=== PATIENT | female | born 1945 | race Caucasian/White ===

== ENCOUNTER → 2017-02-03 15:51 | Outpatient (CLI) | payer MEDICARE, OTHER | END | disposition home or self-care (01) | LOC: D.MAMMO 08:00 | DX: Z12.31 Encounter for screening mammogram for malignant neoplasm of breast (principal) ==

== ENCOUNTER 2017-10-24 09:51 | Outpatient (CLI) | payer MEDICARE, OTHER ==
[~2017-10-24] VITALS: Ht 165.1 cm; Wt 65.9 kg
[2017-10-24 10:29] VITALS: Ht 165.1 cm; Wt 65.9 kg
== END 2017-10-24 10:41 | disposition home or self-care (01) ==
LOC: D.OPS 09:51
DX: M81.0 Age-related osteoporosis without current pathological fracture (principal)

== ENCOUNTER 2018-05-29 13:12 | Outpatient (CLI) | payer MEDICARE, OTHER ==
[~2018-05-29] VITALS: Ht 165.1 cm; Wt 68.0 kg
[2018-05-29 13:46] VITALS: BP 147/73; Ht 165.1 cm; Wt 68.0 kg
== END 2018-05-29 14:14 | disposition home or self-care (01) ==
LOC: D.OPS 13:12
DX: M81.0 Age-related osteoporosis without current pathological fracture (principal); Z01.812 Encounter for preprocedural laboratory examination

== ENCOUNTER 2018-09-16 10:51 | Inpatient (IN) | payer MEDICARE, OTHER ==
[~2018-09-16] VITALS: Ht 165.1 cm; Wt 68.0 kg
[2018-09-16 12:40] LABS: BASOPHILS 0.1 % (0-2); EOSINOPHILS 0.3 % (0-7); HEMOGLOBIN 14.1 g/dL (12-16); IMMATURE GRANULOCYTES 0.4 % (0-5); LYMPHOCYTES 5.8 % (15-50); MCH 31.3 pg (26.0-34.0); MCHC 33.6 g/dL (31.0-37.0); MCV 93.3 fL (80.0-100.0); MEAN PLATELET VOLUME 10.1 fL (7.4-10.4); MONOCYTES 6.4 % (2-11); PLATELET COUNT 223 10x3/uL (130-400); RDW 14.1 % (11.5-14.5); WBC 13.7 10x3/uL (4.8-10.8)
[2018-09-16 12:44] LABS: INR 0.98 (0.85-1.17); PROTIME 12.5 SECONDS (11.6-15.0)
[2018-09-16 13:08] LABS: ALBUMIN 3.8 g/dL (3.4-5.0); ANION GAP 12.8 mmol/L (8-16); BILIRUBIN - TOTAL 0.61 mg/dL (0.2-1.3); CALCIUM 9.3 mg/dL (8.5-10.1); CARBON DIOXIDE 29.6 mmol/L (21.0-32.0); CREATININE - SERUM 0.9 mg/dL (0.6-1.3); MAGNESIUM - SERUM 1.8 mg/dL (1.8-2.4); POTASSIUM - SERUM 3.4 mmol/L (3.5-5.1); PROTEIN - SERUM 7.1 g/dL (6.4-8.2)
[2018-09-16 14:27] VITALS: BP 171/69; Ht 165.1 cm; Wt 68.0 kg
--- NOTE | 2018-09-16 16:20 | NUR ---
PT LEFT FOR SURGERY AND STABLE AT TIME OF DEPARTURE WITH SURGERY STAFF.
--- NOTE | 2018-09-16 20:30 | NUR ---
RECIEVED TO ROOM, ACCOMPANIED BY STAFF AND FAMILY MEMBER. ABLE TO MOVE ALL EXTREMETIES, BUT DENIES ABILITY TO FEEL SENSATION. A&O X 4, WILL CONTINUE TO MONITOR.
--- NOTE | 2018-09-17 03:25 | NUR ---
REPORTS NEED FOR A BM, PUT ON BEDPAN, SOME LIQUID STOOL ALREADY NOTED ON SHEETS. PT REPORTS SHE THINK SHE IS DONE, NO MORE STOOL NOTED IN BEDPAN. LISA CARE PROVIDED, LINENS CHANGED. DENIES FURTHER NEEDS.
--- NOTE | 2018-09-17 03:45 | NUR ---
I have reviewed this patient and I concur with the Shift Assessment completed by the Licensed Practical Nurse today this shift.
[2018-09-17 04:00] VITALS: BP 108/60
[2018-09-17 08:00] VITALS: BP 137/77
[2018-09-17 08:03] LABS: BASOPHILS 0.1 % (0-2); EOSINOPHILS 0 % (0-7); HEMATOCRIT 32.8 % (36.0-48.0); HEMOGLOBIN 10.8 g/dL (12-16); IMMATURE GRANULOCYTES 0.3 % (0-5); LYMPHOCYTES 4.5 % (15-50); MCH 30.3 pg (26.0-34.0); MCHC 32.9 g/dL (31.0-37.0); MCV 91.9 fL (80.0-100.0); MEAN PLATELET VOLUME 10.5 fL (7.4-10.4); MONOCYTES 8.9 % (2-11); NEUTROPHILS 86.2 % (40-80); PLATELET COUNT 216 10x3/uL (130-400); RBC 3.57 10x6/uL (4.00-5.40); WBC 13.8 10x3/uL (4.8-10.8)
[2018-09-17 08:22] LABS: ALBUMIN 2.7 g/dL (3.4-5.0); ANION GAP 12.3 mmol/L (8-16); BILIRUBIN - TOTAL 0.76 mg/dL (0.2-1.3); CALCIUM 7.7 mg/dL (8.5-10.1); CARBON DIOXIDE 27.8 mmol/L (21.0-32.0); CREATININE - SERUM 0.9 mg/dL (0.6-1.3); MAGNESIUM - SERUM 1.7 mg/dL (1.8-2.4); POTASSIUM - SERUM 5.1 mmol/L (3.5-5.1); PROTEIN - SERUM 5.4 g/dL (6.4-8.2)
--- NOTE | 2018-09-17 08:56 | OP ---
PATIENT NAME: DAVE QUEZADA MEDICAL RECORD: [id number] :47 LOCATION:D.MS [id number] ADMISSION DATE:09/16/18 SURGEON: ARIES JARRELL DO DATE OF OPERATION: 09/16/2018 PROCEDURE PERFORMED: Right hip intramedullary nail. PREOPERATIVE DIAGNOSIS: Closed and displaced right intertrochanteric hip fracture. POSTOPERATIVE DIAGNOSIS: Closed and displaced right intertrochanteric hip fracture. INDICATIONS: Ms. Quezada is a 73-year-old female who fell in her garage down to her right hip. She was unable to bear weight and was taken to the ER. X-rays were done and showed a right comminuted intertrochanteric hip fracture. She last ate at about 8:30 or 9:00 this morning. I saw her in the ER today and informed we can fix her hip today as she was not on any other medicines. She did get an EKG, and due to EKG, we decided to do spinal. I informed her and her of risks and benefits of the right hip IM nail including infection, bleeding, damage to nerves and vessels, need for further surgery, fracture. They were okay with those risks and she signed the consent. SURGEON: Aries Jarrell DO DESCRIPTION OF PROCEDURE: The patient was taken to the operative suite and a spinal was placed by anesthesia. Once the spinal was set up, the patient was placed over on Solomon table and positioned. A time-out was performed and everyone was in agreement as to correct side, site, patient, and procedure. She received a gram of Ancef prior to starting surgery. The reduction maneuver was then made with the hip on the Solomon table. This was confirmed on x-ray. After adequate reduction of the IT fracture on x-ray, then the hip was prepped and draped. Once the hip was prepped and draped, the incision began just proximal to the greater trochanter. Once the starting point was obtained with guidewire, the awl was used to enter the canal. Once the canal was entered, the ball tip guide pin was placed down the femoral canal, confirmed in AP and lateral down to then knee. It was measured and measured to be a 360 nail. Reaming then began with #[address] up to #13. I decided to put a #11 nail down. The #11 nail was then placed and the guide pin for lag screw was placed and confirmed to be in good position on AP and lateral, measured to be 100. It was then drilled and lag screw was placed. Then, traction was let off. There was compression on the lag screw. I was not able to lock and I had to abandon that and then anti-rotational screw was placed with an 80-mm anti-rotational screw. Once the anti-rotational screw was placed, the jig was removed and the locking mechanism was used to lock those [address]. Then, further thresholds were made distally and a distal locking screw was put in through the nail on the dynamic hole. The position of the nail was confirmed on AP and lateral in the shaft and the sites were irrigated. The proximal incision had to be numbed up with 2% lidocaine 10 mL of it in order for her to tolerate the sutures. Vicryl 2-0 in an inverted interrupted fashion was made over the proximal 2 incisions and the distal incision for the distal locking screw. Then, Prineo glue was placed over each of the incision sites. The patient was then taken to recovery in stable condition. BLOOD LOSS: Approximately 100 mL. OPERATIVE REPORT [id number] DAVE QUEZADA COMPLICATIONS: None. TRANSINT:[id number] Voice Confirmation ID: [id number] DOCUMENT ID: [id number] ARIES JARRELL DO at 0856 CC: [id number] DICTATION DATE: 09/16/181855 DOCUMENT CONTROL CLERK: 09/17/18 0036 ADM IN [place] [address] [place] [address]
[2018-09-17] MEDS ORDERED: CALCIUM 600 +1 EAC3 PO (09:25)
--- NOTE | 2018-09-17 10:02 | NUR ---
PT LYING IN BED, NO NEEDS VOICED, UPDATED PT PHARMACY IN CHART, ECHO TO BE DONE THIS MORNING, CONTINUE WITH PLAN OF CARE
[2018-09-17 11:24] LABS: CKMB 2.5 U/L (0.0-3.6); CREATINE KINASE 245 UL (21-215); TROPONIN-I 0.032 ng/mL (0.000-0.060)
--- NOTE | 2018-09-17 13:35 | NUR ---
PT SITTING UP IN BED SPOUSE AT [facility], PT INQUIRED ON BECKER BEING REMOVED AND BSC BEING IN ROOM, CHECKED ORDERS AND THEN DR'S NOTES, PER DR Charissa BECKER, PLACED ORDER FOR BECKER BEING DC AND PLACE BSC IN PT ROOM. NO OTHER NEEDS VOICED CONTINUE WITH PLAN OF CARE
[2018-09-17 14:00] VITALS: BP 141/46
--- NOTE | 2018-09-17 16:18 | NUR ---
I have reviewed this patient and I concur with the Shift Assessment completed by the Licensed Practical Nurse today this shift.
[2018-09-17 17:08] LABS: CKMB 2.9 U/L (0.0-3.6); CREATINE KINASE 279 UL (21-215); TROPONIN-I 0.045 ng/mL (0.000-0.060)
[2018-09-17 18:01] VITALS: BP 136/63
[2018-09-17 20:00] VITALS: BP 137/56
[2018-09-17 22:12] LABS: CKMB 2.1 U/L (0.0-3.6); CREATINE KINASE 301 UL (21-215); TROPONIN-I 0.025 ng/mL (0.000-0.060)
--- NOTE | 2018-09-18 02:00 | NUR ---
DENIES PAIN, SCDs IN USE, REPORTS HELPED HER TO BSC AND SHE VOIDED AND AMBULATED BACK TO BED WITH WALKER WITHOUT ISSUE. WILL CONTINUE TO MONITOR.
[2018-09-18 04:00] VITALS: BP 122/57
[2018-09-18 05:31] LABS: BASOPHILS 0.1 % (0-2); EOSINOPHILS 0.1 % (0-7); HEMATOCRIT 28.6 % (36.0-48.0); HEMOGLOBIN 9.4 g/dL (12-16); IMMATURE GRANULOCYTES 0.3 % (0-5); LYMPHOCYTES 7.3 % (15-50); MCH 30.3 pg (26.0-34.0); MCHC 32.9 g/dL (31.0-37.0); MCV 92.3 fL (80.0-100.0); MEAN PLATELET VOLUME 10.4 fL (7.4-10.4); MONOCYTES 9.4 % (2-11); NEUTROPHILS 82.8 % (40-80); RDW 14.4 % (11.5-14.5); WBC 13.1 10x3/uL (4.8-10.8)
[2018-09-18 06:01] LABS: PLATELET COUNT 159 10x3/uL (130-400)
[2018-09-18 06:36] LABS: ALBUMIN 2.6 g/dL (3.4-5.0); ANION GAP 7.8 mmol/L (8-16); BILIRUBIN - TOTAL 0.76 mg/dL (0.2-1.3); CALCIUM 7.8 mg/dL (8.5-10.1); CARBON DIOXIDE 29.7 mmol/L (21.0-32.0); CREATININE - SERUM 0.8 mg/dL (0.6-1.3); MAGNESIUM - SERUM 2.1 mg/dL (1.8-2.4); POTASSIUM - SERUM 4.5 mmol/L (3.5-5.1); PROTEIN - SERUM 5.6 g/dL (6.4-8.2)
[2018-09-18 08:27] VITALS: BP 137/56
--- NOTE | 2018-09-18 09:44 | NUR ---
ADMINISTERED PAIN MEDICATION WITH PT MORNING MEDS AND CHANGED DRESSING PER DR CASTRO ORDERS. NO NEEDS VOICED, CONTINUE WITH PLAN OF CARE
[2018-09-18 12:45] VITALS: BP 125/64
--- NOTE | 2018-09-18 13:13 | EC ---
PATIENT:DAVE QUEZADA DATE OF SERVICE: 09/16/18 SEX: F MEDICAL RECORD: [id number] DATE OF : [birth year] LOCATION:D.MS [place] AGE OF PATIENT: 73 ADMISSION DATE: 09/16/18 REFERRING PHYSICIAN: INTERPRETING PHYSICIAN: LONG NARANJO MD ECHOCARDIOGRAM REPORT ECHO CHARGES 4 ECHO COMPLETE Date: 09/17/18 CLINICAL DIAGNOSIS: ABNORMAL EKG ECHOCARDIOGRAPHIC MEASUREMENTS (adult normal given) AC root (d.<3.7cm) 2.9 cm LV Septum d (<1.2 cm> 1.6 cm Valve Excursion 1.5 cm LV Septum (systole) 2.0 cm Left Atria (s.<4.0cm> 2.8 cm LVPW d(<1.2cm) 1.5 cm RV (d.<2.3cm) 1.8 cm LVPW (sytole) 2.1 cm LV diastole(<5.6CM) 3.6 cm MV E-F(>70mm/sec) cm LV systole 1.5 cm LVOT Diameter 1.5 cm MV exc.(>10mm) cm Est.ejection fraction (50-75%) % DOPPLER: LVIT cm/sec A 124 cm/sec E 75.0 cm/sec LA cm/sec RVSP 43.0 mmHg LVOT 153 cm/sec AOP1/2T m/s Asc. Ao 186 cm/sec RVOT 107 cm/sec RA cm/sec PA 115 cm/sec AV Gradient Peak 14.0 mmHg AV Mean 7.5 mmHg AV Area 1.3 cm MV Gradient Peak 6.3 mmHg MV Mean 2.4 mmHg MV Area cm COMMENTS: Smoke Jumper: Latrell GREENOE Civil Process Server: 3 Dr. Silva TAPE# PACS Pericardial Effusion Y DATE OF SERVICE: Adequate 2D, color flow, spectral Doppler, and M-Mode. LVH is present. LV internal dimensions are normal, wall motion normal. EF is greater than or equal to 55%. Aortic valve sclerosis without stenosis by Doppler interrogation. Left atrium normal at 2.8. Mitral valve shows no prolapse. Trace MR. Right-sided chambers grossly normal. Trace TR. TRANSINT:[id number] Voice Confirmation ID: [id number] DOCUMENT ID: [id number] ECHOCARDIOGRAM REPORT [id number] DAVE QUEZADA LONG NARANJO MD at 1313 CC: [id number] DICTATION DATE: 09/17/18 1217 BISQUE KILN PLACER: 09/17/18 1311 ADM IN [place] [id number] [place] [id number]
--- NOTE | 2018-09-18 13:20 | NUR ---
PT SITTING IN CHAIR STATES PAIN IS AT A 4 WHEN SHE MOVES OR MORE, ADVISED PT TO STAY ON TOP OF PAIN MEDICATION AND NOT LET IT GET TOO BAD, ADMINISTER PRN PAIN MED FOR HER
--- NOTE | 2018-09-18 14:26 | NUR ---
I have reviewed this patient and I concur with the Shift Assessment completed by the Licensed Practical Nurse today this shift.
--- NOTE | 2018-09-18 15:57 | MORECARE ---
CASE MANAGEMENT DISCHARGE SUMMARY PATIENT: DAVE QUEZADA UNIT: [id number] ADM DATE: 09/16/18 AGE: 73 : 46 SEX: F ROOM/BED: D.2211 AUTHOR: DANA BRISCOE PHYSICIAN: REFERRING PHYSICIAN: JORDANA JARRELL DO DATE OF SERVICE: 09/18/18 Discharge Plan Patient Name: DAVE QUEZADA Facility: [facility]:[place] : 1945 Planned Disposition: Home or Self Care Anticipated Discharge Date: Discharge Date: Expected LOS: Initial Reviewer: [email or web address] Initial Review Date: 09/16/2018 Generated: 09/18/18 4:57 pm DCPIA - Discharge Planning Initial Assessment Updated by [email or web address]: Richelle Wilcox on 09/18/18 3:53 pm * Is the patient Alert and Oriented? Yes * How many steps to enter\exit or inside your home? * PCP [place] * Pharmacy [facility] ON * Preadmission Environment Home with Family * ADLs Independent * Equipment Bedside Commode Cane Rolling Walker Walker Wheelchair * List name and contact numbers for known caregivers / representatives who currently or will assist patient after discharge: MERE () [phone] * Verbal permission to speak to the caregivers and representatives has been obtained from the patient. N/A * Community resources currently utilized None * Additional services required to return to the preadmission environment? Yes * Can the patient safely return to the preadmission environment? Yes * Has this patient been hospitalized within the prior 30 days at any hospital? No Patient Name: DAVE QUEZADA Page [id number] at 1557 All edits/amendments must be made on the electronic document DICTATION DATE: 09/18/181555 SOLAR EN[employer] SYSTEMS DESIGNER: SHARI 09/18/181555 RPT#: [id number] DC DATE: STATUS: ADM IN [facility] [address] [place] [address] END OF REPORT
--- NOTE | 2018-09-18 16:07 | MORECARE ---
CASE MANAGEMENT DISCHARGE SUMMARY PATIENT: DAVE QUEZADA UNIT: [id number] ADM DATE: 09/16/18 AGE: 73 : 46 SEX: F ROOM/BED: D.2211 AUTHOR: DANA BRISCOE PHYSICIAN: REFERRING PHYSICIAN: JORDANA JARRELL DO DATE OF SERVICE: 09/18/18 Discharge Plan Patient Name: DAVE QUEZADA Facility: [facility]:[place] : 1945 Planned Disposition: Home or Self Care Anticipated Discharge Date: Discharge Date: Expected LOS: Initial Reviewer: [email or web address] Initial Review Date: 09/16/2018 Generated: 09/18/18 5:07 pm Comments DCP- Discharge Planning Updated by [email or web address]: Richelle Wilcox on 09/18/18 2:[address] Patient Name: DAVE QUEZADA Admission Status: ER Accout number: [id number] Admission Date: 09-16-2018 : 1945 Admission Diagnosis: Attending: JORDANA JARRELL Current LOS: 2 Anticipated DC Date: Planned Disposition: Home or Self Care Primary Insurance: MEDICARE A & B Discharge Planning Comments: CM met with patient to complete initial dc planning assessment. CM educated patient on the CM role and verbal consent given by patient to complete assessment. Patient lives at home with her and adult daughter where she was independent with her care. At discharge patient plans to return home and feels this is a safe discharge. CM discussed availability of home health, rehab services, and medical equipment. She would like home health, but unsure on what company. She will talk to her and let me know. She has a BSC, walker, and cane at home. Her is getting a wheelchair just incase she will need it. There are not any steps or stairs in her home that she will need to use. IMM served and explained. CM will continue to follow and will assist as needed with dc plans/needs. Hammer Runner: Richelle Wilcox DCPIA - Discharge Planning Initial Assessment Updated by [email or web address]: Richelle Wilcox on 09/18/18 3:53 pm * Is the patient Alert and Oriented? Yes * How many steps to enter\exit or inside your home? * PCP [place] * Pharmacy [facility] * Preadmission Environment Home with Family * ADLs Independent * Equipment Bedside Commode Cane Rolling Walker Walker Wheelchair * List name and contact numbers for known caregivers / representatives who currently or will assist patient after discharge: MERE () [phone] * Verbal permission to speak to the caregivers and representatives has been obtained from the patient. N/A * Community resources currently utilized None * Additional services required to return to the preadmission environment? Yes * Can the patient safely return to the preadmission environment? Yes * Has this patient been hospitalized within the prior 30 days at any hospital? No Coverage Notice Reviewer: [id number] Ross Wilcox Notice Issued Date-Time: 09/18/2018 15:45 Notice Type: IM Discharge Notice Notice Delivered To: Patient Relationship to Patient: Door Frame Builder Name: Delivery Method: HAND - Hand Delivered Darcy Days: Prior Verbal Notification: Recipient Understood Notice: Yes Recipient Signature: Yes Med Rec Note Co-signed by Attending: Coverage Notice Comment: Last DP export: 09/18/18 2:57 pm Patient Name: DAVE QUEZADA Page [phone] at 1607 All edits/amendments must be made on the electronic document DICTATION DATE: 09/18/181606 CANE PACKER: SHARI 09/18/181606 RPT#: [id number] DC DATE: STATUS: ADM IN [facility] [address] [place] [address] END OF REPORT
[2018-09-18 16:45] VITALS: BP 122/56
--- NOTE | 2018-09-18 19:45 | NUR ---
SITTING UP IN BED, REPORTS PAIN IS BEGINNING TO LESSEN. AT BEDSIDE, STATES HE HAS BEEN ABLE TO ASSIST PT WITH/OUT ISSUE WITH AMBULATING IN ROOM AND SOME IN HALLWAY. PT REPORTS SOFT/LOOSE BM AND STATES SHE MAY NOT NEED A STOOL SOFTENER TONIGHT. NO NEEDS AT THIS TIME. WILL CONTINUE TO MONITOR.
[2018-09-18 20:00] VITALS: BP 121/53
[2018-09-19 04:00] VITALS: BP 129/60
--- NOTE | 2018-09-19 04:24 | NUR ---
I have reviewed this patient and I concur with the Shift Assessment completed by the Licensed Practical Nurse today this shift.
[2018-09-19 05:36] LABS: BASOPHILS 0.1 % (0-2); EOSINOPHILS 0.3 % (0-7); HEMATOCRIT 26.3 % (36.0-48.0); HEMOGLOBIN 8.6 g/dL (12-16); IMMATURE GRANULOCYTES 0.6 % (0-5); LYMPHOCYTES 8.8 % (15-50); MCH 30.6 pg (26.0-34.0); MCHC 32.7 g/dL (31.0-37.0); MCV 93.6 fL (80.0-100.0); MEAN PLATELET VOLUME 10.6 fL (7.4-10.4); MONOCYTES 11.7 % (2-11); NEUTROPHILS 78.5 % (40-80); PLATELET COUNT 138 10x3/uL (130-400); RBC 2.81 10x6/uL (4.00-5.40); RDW 14.5 % (11.5-14.5); WBC 9.9 10x3/uL (4.8-10.8)
[2018-09-19 06:09] LABS: ALBUMIN 2.4 g/dL (3.4-5.0); ALKALINE PHOSPHATASE 46 U/L (46-116); ALT (SGPT) 18 U/L (10-68); BILIRUBIN - TOTAL 0.56 mg/dL (0.2-1.3); CALC OSMOLALITY 280 mosm/kg (275-300); CALCIUM 8.3 mg/dL (8.5-10.1); CARBON DIOXIDE 29.4 mmol/L (21.0-32.0); CHLORIDE - SERUM 105 mmol/L (98-107); CREATININE - SERUM 0.7 mg/dL (0.6-1.3); GLUCOSE 116 mg/dL (74-106); MAGNESIUM - SERUM 2.1 mg/dL (1.8-2.4); POTASSIUM - SERUM 4.2 mmol/L (3.5-5.1); PROTEIN - SERUM 5.5 g/dL (6.4-8.2); SODIUM 139 mmol/L (136-145); UREA NITROGEN 18 mg/dL (7-18); eGFR NON AFRICAN AMERICAN 87 mL/min (90-120)
[2018-09-19 09:41] VITALS: BP 122/62
[2018-09-19] MEDS ORDERED: BAYER CHEWABLE81 MG PO (13:57)
[2018-09-19] MEDS ORDERED: HYDROCODON-ACE1 EAC7 PO (13:57)
--- NOTE | 2018-09-19 14:17 | MORECARE ---
CASE MANAGEMENT DISCHARGE SUMMARY PATIENT: DAVE QUEZADA UNIT: [id number] ADM DATE: 09/16/18 AGE: 73 : 46 SEX: F ROOM/BED: D.2211 AUTHOR: DANA BRISCOE PHYSICIAN: REFERRING PHYSICIAN: JORDANA JARRELL DO DATE OF SERVICE: 09/19/18 Discharge Plan Patient Name: DAVE QUEZADA Facility: [facility]:[place] : 1945 Planned Disposition: Home or Self Care Anticipated Discharge Date: Discharge Date: Expected LOS: Initial Reviewer: [email or web address] Initial Review Date: 09/16/2018 Generated: 09/19/18 3:17 pm Comments DCP- Discharge Planning Updated by [email or web address]: Richelle Wilcox on 09/18/18 2:[address] Patient Name: DAVE QUEZADA Admission Status: ER Accout number: [id number] Admission Date: 09-16-2018 : 1945 Admission Diagnosis: Attending: JORDANA JARRELL Current LOS: 2 Anticipated DC Date: Planned Disposition: Home or Self Care Primary Insurance: MEDICARE A & B Discharge Planning Comments: CM met with patient to complete initial dc planning assessment. CM educated patient on the CM role and verbal consent given by patient to complete assessment. Patient lives at home with her and adult daughter where she was independent with her care. At discharge patient plans to return home and feels this is a safe discharge. CM discussed availability of home health, rehab services, and medical equipment. She would like home health, but unsure on what company. She will talk to her and let me know. She has a BSC, walker, and cane at home. Her is getting a wheelchair just incase she will need it. There are not any steps or stairs in her home that she will need to use. IMM served and explained. CM will continue to follow and will assist as needed with dc plans/needs. Warehouse Picker: Richelle Wilcox DCPIA - Discharge Planning Initial Assessment Updated by [email or web address]: Richelle Wilcox on 09/18/18 3:53 pm * Is the patient Alert and Oriented? Yes * How many steps to enter\exit or inside your home? * PCP [place] * [facility] * Preadmission Environment Home with Family * ADLs Independent * Equipment Bedside Commode Cane Rolling Walker Walker Wheelchair * List name and contact numbers for known caregivers / representatives who currently or will assist patient after discharge: MERE () [phone] * Verbal permission to speak to the caregivers and representatives has been obtained from the patient. N/A * Community resources currently utilized None * Additional services required to return to the preadmission environment? Yes * Can the patient safely return to the preadmission environment? Yes * Has this patient been hospitalized within the prior 30 days at any hospital? No Coverage Notice Reviewer: [id number] Ross Wilcox Notice Issued Date-Time: 09/18/2018 15:45 Notice Type: IM Discharge Notice Notice Delivered To: Patient Relationship to Patient: Pellet Post Inspector Name: Delivery Method: HAND - Hand Delivered Darcy Days: Prior Verbal Notification: Recipient Understood Notice: Yes Recipient Signature: Yes Med Rec Note Co-signed by Attending: Coverage Notice Comment: Last DP export: 09/18/18 3:07 pm Patient Name: DAVE QUEZADA Page [phone] at 1417 All edits/amendments must be made on the electronic document DICTATION DATE: 09/19/181416 JUNIOR BOOKKEEPER: SHARI 09/19/181416 RPT#: [id number] DC DATE: STATUS: ADM IN [facility] [address] [place] [address] END OF REPORT
--- NOTE | 2018-09-19 14:25 | MORECARE ---
CASE MANAGEMENT DISCHARGE SUMMARY PATIENT: DAVE QUEZADA UNIT: [id number] ADM DATE: 09/16/18 AGE: 73 : 46 SEX: F ROOM/BED: D.2211 AUTHOR: DANA BRISCOE PHYSICIAN: REFERRING PHYSICIAN: JORDANA JARRELL DO DATE OF SERVICE: 09/19/18 Discharge Plan Patient Name: DAVE QUEZADA Facility: [facility]:[place] : 1945 Planned Disposition: Home or Self Care Anticipated Discharge Date: Discharge Date: Expected LOS: Initial Reviewer: [id number] Initial Review Date: 09/16/2018 Generated: 09/19/18 3:25 pm Comments DCP- Discharge Planning Updated by [email or web address]: Richelle Wilcox on 09/18/18 2:[address] Patient Name: DAVE QUEZADA Admission Status: ER Accout number: [id number] Admission Date: 09-16-2018 : 1945 Admission Diagnosis: Attending: JORDANA JARRELL Current LOS: 2 Anticipated DC Date: Planned Disposition: Home or Self Care Primary Insurance: MEDICARE A & B Discharge Planning Comments: CM met with patient to complete initial dc planning assessment. CM educated patient on the CM role and verbal consent given by patient to complete assessment. Patient lives at home with her and adult daughter where she was independent with her care. At discharge patient plans to return home and feels this is a safe discharge. CM discussed availability of home health, rehab services, and medical equipment. She would like home health, but unsure on what company. She will talk to her and let me know. She has a BSC, walker, and cane at home. Her is getting a wheelchair just incase she will need it. There are not any steps or stairs in her home that she will need to use. IMM served and explained. CM will continue to follow and will assist as needed with dc plans/needs. Director Music: Richelle Wilcox DCPIA - Discharge Planning Initial Assessment Updated by [id number]: Richelle Wilcox on 09/18/18 3:53 pm * Is the patient Alert and Oriented? Yes * How many steps to enter\exit or inside your home? * PCP [place] * [facility] * Preadmission Environment Home with Family * ADLs Independent * Equipment Bedside Commode Cane Rolling Walker Walker Wheelchair * List name and contact numbers for known caregivers / representatives who currently or will assist patient after discharge: MERE () [phone] * Verbal permission to speak to the caregivers and representatives has been obtained from the patient. N/A * Community resources currently utilized None * Additional services required to return to the preadmission environment? Yes * Can the patient safely return to the preadmission environment? Yes * Has this patient been hospitalized within the prior 30 days at any hospital? No External Providers External Provider: [facility] Next Contact Date: Service Request Date: Service Type: Resolution: Reviewer: Comments: Coverage Notice Reviewer: [id number] Ross Wilcox Notice Issued Date-Time: 09/18/2018 15:45 Notice Type: IM Discharge Notice Notice Delivered To: Patient Relationship to Patient: Respiratory Scientist Name: Delivery Method: HAND - Hand Delivered Darcy Days: Prior Verbal Notification: Recipient Understood Notice: Yes Recipient Signature: Yes Med Rec Note Co-signed by Attending: Coverage Notice Comment: Last DP export: 09/19/18 1:17 p Patient Name: DAVE QUEZADA Page [phone] at 1425 All edits/amendments must be made on the electronic document DICTATION DATE: 09/19/181424 SLEEP MANAGER: SHARI 09/19/181424 RPT#: [id number] DC DATE: STATUS: ADM IN [facility] [address] [place] [address] END OF REPORT
--- NOTE | 2018-09-19 14:33 | MORECARE ---
CASE MANAGEMENT DISCHARGE SUMMARY PATIENT: DAVE QUEZADA UNIT: [id number] ADM DATE: 09/16/18 AGE: 73 : 46 SEX: F ROOM/BED: D.2211 AUTHOR: DANA BRISCOE PHYSICIAN: REFERRING PHYSICIAN: JORDANA JARRELL DO DATE OF SERVICE: 09/19/18 Discharge Plan Patient Name: DAVE QUEZADA Facility: [facility]:[place] : 1945 Planned Disposition: Home or Self Care Anticipated Discharge Date: Discharge Date: Expected LOS: Initial Reviewer: [email or web address] Initial Review Date: 09/16/2018 Generated: 09/19/18 3:33 pm Comments DCP- Discharge Planning Updated by [id number]: Richelle Wilcox on 09/19/18 1:[address] [facility] [place] SIGNED AND PLACED IN CHART. I SPOKE WITH [facility] WITH [facility]. THEY WILL ACCEPT PATIENT. PATIENT'S AT BEDSIDE. PATIENT DENIES ANY OTHER NEEDS AT THIS TIME DCP- Discharge Planning Updated by [id number]: Richelle Wilcox on 09/18/18 2:[address] Patient Name: DAVE QUEZADA Admission Status: ER Accout number: [id number] Admission Date: 09-16-2018 : 1945 Admission Diagnosis: Attending: JORDANA JARRELL Current LOS: 2 Anticipated DC Date: Planned Disposition: Home or Self Care Primary Insurance: MEDICARE A & B Discharge Planning Comments: CM met with patient to complete initial dc planning assessment. CM educated patient on the CM role and verbal consent given by patient to complete assessment. Patient lives at home with her and adult daughter where she was independent with her care. At discharge patient plans to return home and feels this is a safe discharge. CM discussed availability of home health, rehab services, and medical equipment. She would like home health, but unsure on what company. She will talk to her and let me know. She has a BSC, walker, and cane at home. Her is getting a wheelchair just incase she will need it. There are not any steps or stairs in her home that she will need to use. IMM served and explained. CM will continue to follow and will assist as needed with dc plans/needs. Audio Visual Collections Coordinator: Richelle Wilcox DCPIA - Discharge Planning Initial Assessment Updated by [email or web address]: Richelle Wilcox on 09/18/18 3:53 pm * Is the patient Alert and Oriented? Yes * How many steps to enter\exit or inside your home? * PCP [place] * [facility] [address] * Preadmission Environment Home with Family * ADLs Independent * Equipment Bedside Commode Cane Rolling Walker Walker Wheelchair * List name and contact numbers for known caregivers / representatives who currently or will assist patient after discharge: MERE () [phone] * Verbal permission to speak to the caregivers and representatives has been obtained from the patient. N/A * Community resources currently utilized None * Additional services required to return to the preadmission environment? Yes * Can the patient safely return to the preadmission environment? Yes * Has this patient been hospitalized within the prior 30 days at any hospital? No Coverage Notice Reviewer: [email or web address] Ross Wilcox Notice Issued Date-Time: 09/18/2018 15:45 Notice Type: IM Discharge Notice Notice Delivered To: Patient Relationship to Patient: Spanish Language Lecturer Name: Delivery Method: HAND - Hand Delivered Darcy Days: Prior Verbal Notification: Recipient Understood Notice: Yes Recipient Signature: Yes Med Rec Note Co-signed by Attending: Coverage Notice Comment: Reviewer: [email or web address] Wilcox Notice Issued Date-Time: 09/19/2018 14:00 Notice Type: Patient Choice Letter Notice Delivered To: Patient Relationship to Patient: Spanish Language Lecturer Name: Delivery Method: HAND - Hand Delivered Darcy Days: Prior Verbal Notification: Recipient Understood Notice: Yes Recipient Signature: Yes Med Rec Note Co-signed by Attending: Coverage Notice Comment: [facility] WITH [facility] DP export: 09/19/18 1:25 p Patient Name: DAVE QUEZADA Page [id number] at 1433 All edits/amendments must be made on the electronic document DICTATION DATE: 09/19/18 1433 PRODUCT INSPECTION COORDINATOR: SHARI 09/19/18 143 RPT#: [id number] DC DATE: STATUS: ADM IN [facility] [address] [place] [address] END OF REPORT
[2018-09-19 15:09] VITALS: BP 137/55
== END 2018-09-19 16:52 | disposition home health service (06) | DRG 482 ==
LOC: D.ER 10:51 → D.MS 12:34
PROVIDERS: Emergency Medicine; Family Medicine; Internal Medicine Interventional Cardiology; ADMIT Orthopaedic Surgery; ATTEND Orthopaedic Surgery
PROC: 0QH606Z Insertion of Intramedullary Internal Fixation Device into Right Upper Femur, Open Approach (ICD-10-PCS; principal; 2018-09-16 15:08)
DX: S72.141A Displaced intertrochanteric fracture of right femur, initial encounter for closed fracture (principal); W19.XXXA Unspecified fall, initial encounter; E11.9 Type 2 diabetes mellitus without complications

== ENCOUNTER 2018-12-20 12:13 | Outpatient (CLI) | payer MEDICARE, OTHER ==
[~2018-12-20] VITALS: Ht 165.1 cm; Wt 64.5 kg
[~2018-12-20 12:13] MED LIST: BAYER CHEWABLE81 MG PO; CALCIUM 600 +1 EAC3 PO; HYDROCODON-ACE1 EAC7 PO
[2018-12-20 13:18] VITALS: BP 149/54; Ht 165.1 cm; Wt 64.5 kg
== END 2018-12-20 14:07 | disposition home or self-care (01) ==
LOC: D.OPS 12:13
PROVIDERS: ATTEND Family Medicine
DX: M81.0 Age-related osteoporosis without current pathological fracture (principal)

== ENCOUNTER 2019-03-19 08:00 | Outpatient (CLI) | payer MEDICARE, OTHER ==
[2018-12-20 13:18] VITALS: BMI 23.6
== END 2019-03-19 12:00 | disposition home or self-care (01) ==
LOC: D.MAMMO 08:00
PROVIDERS: ATTEND Family Medicine
DX: Z12.31 Encounter for screening mammogram for malignant neoplasm of breast (principal)

== ENCOUNTER 2019-06-25 12:24 | Outpatient (CLI) | payer MEDICARE, OTHER ==
[~2019-06-25] VITALS: Ht 162.6 cm; Wt 65.9 kg
[2019-06-25 12:41] VITALS: BP 153/56; Ht 162.6 cm; Wt 65.9 kg
== END 2019-06-25 12:51 | disposition home or self-care (01) ==
LOC: D.OPS 12:24
PROVIDERS: ATTEND Family Medicine
DX: M81.0 Age-related osteoporosis without current pathological fracture (principal)